=== PATIENT | male | born 1995 | race Caucasian/White ===

== ENCOUNTER 2016-08-16 16:01 | Emergency (ER) | payer OTHER ==
[~2016-08-16] VITALS: Ht 185.4 cm; Wt 97.5 kg
[2016-08-16 16:40] VITALS: BP 131/75
== END 2016-08-16 17:37 | disposition home or self-care (01) ==
LOC: ED 16:01
DX: T63.441A Toxic effect of venom of bees, accidental (unintentional), initial encounter (principal); R60.0 Localized edema; Y92.89 Other specified places as the place of occurrence of the external cause
CPT/HCPCS: J8540